=== PATIENT | female | born 1950 | race Caucasian/White ===

== ENCOUNTER 2016-09-06 08:30 | Inpatient (IN) | payer MEDICARE, OTHER ==
[2016-09-03 12:37] LABS: HEMATOCRIT 43.9 % (36.0-48.0); HEMOGLOBIN 15.6 g/dL (12.0-16.0)
[2016-09-03 13:03] LABS: CHLORIDE, SERUM 105 MMOL/L (96-112); CO2 (CARBON DIOXIDE) 30 MMOL/L (24-34); CREATININE 1.16 MG/DL (0.55-1.02); GFR AFRICAN AMERICAN 57 ML/MIN (>=60); GFR NON AFRICAN AMERICAN 49 ML/MIN (>=60); GLUCOSE, SERUM 200 MG/DL (60-99); SODIUM, SERUM 137 MMOL/L (135-148)
[2016-09-03 13:04] LABS: BUN (BLOOD UREA NITROGEN) 23 MG/DL (6-23); CALCIUM, SERUM 10.1 MG/DL (8.5-10.4); POTASSIUM, SERUM 5.1 MMOL/L (3.5-5.3)
--- NOTE | ~2016-09-06 | OP ---
Record Of Operation [facility] [place] [address] [place]. [address] NAME: FUNMI ROBLES : 52 STATUS : ADM IN PAT#: [id number] AGE: 66 ADM/REG DATE : 09/06/16 MR#: [id number] REPORT SERV DATE: 09/06/16 DICTATED BY: RONNIE DAVIS II DATE: 09/06/16 REPORT STATUS : Draft TRANSCRIBED BY: MODL DATE: 09/06/16 DATE OF PROCEDURE: 09/06/2016 PREOPERATIVE DIAGNOSES: 1. Nonunion, L3-L4. 2. Remote history of L3-S1 fusion. 3. Screw migration with loosening L3 bilaterally. 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 5. Lower extremity radiculopathy. POSTOPERATIVE DIAGNOSES: 1. Nonunion, L3-L4. 2. Remote history of L3-S1 fusion. 3. Screw migration with loosening L3 bilaterally. 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 5. Lower extremity radiculopathy. PROCEDURES: 1. Lumbar laminectomy and facetectomy, L2-L3. 2. Interbody arthrodesis, L2-L3. 3. Application of prosthetic device, L2-L3. 4. Posterolateral arthrodesis, L2-3. 5. Posterolateral arthrodesis, L3-4. 6. Posterior instrumentation, L2-3 and L3-4. 7. Use of local autograft, allograft substitute, and bone morphogenic protein. 8. Use of the microscope and stereotactic spinal imaging. SURGEON: Ronnie Davis M.D. FLUID: 1500 mL LR. ESTIMATED BLOOD LOSS: 125 mL. DRAINS: One drain. COMPLICATIONS: None. ANTIBIOTIC: Preoperatively. PREOPERATIVE HISTORY: This is a very friendly female, who did relatively well with her surgery previously. However, she is having worsening back and leg pains now. She appears to have a nonunion at L3-4 with clear violation of the endplates at L2-3 from the screws at L3. We discussed the pros and cons of the surgery. We discussed the risks and benefits of the surgery. We discussed the fact that the surgery would not eradicate her back pain, but hopefully would decrease it substantially and also her leg pain. We discussed the risks and she wished to proceed. Record Of Operation [facility] [place] [address] [place]. [address] NAME: FUNMI ROBLES : 52 STATUS : ADM IN PAT#: [id number] AGE: 66 ADM/REG DATE : 09/06/16 MR#: [id number] REPORT SERV DATE: 09/06/16 DICTATED BY: RONNIE DAVIS II DATE: 09/06/16 REPORT STATUS : Draft TRANSCRIBED BY: SUSANNE DATE: 09/06/16 DESCRIPTION OF PROCEDURE: After informed consent was obtained, the patient was brought to the operating room at her request and general anesthesia was achieved. She was placed in a prone position. The back was prepped and draped in a sterile fashion. The stereotactic spinal pin was placed into the iliac crest on the left followed by completion of the intraoperative CT scan. The stereotactic guidance was then used throughout the case. Incision was now made on the right at L2-3 and L3-4. The subperiosteal exposure was completed, and the transverse processes were dissected upon at L2, L3, and L4. The previous hardware was also noted at L3 and L4. The Zamora retractors were placed. At this point, the top nuts were removed at L3 and L4. This allowed the jyothi to be bent out of the way and the loose L5-3 screw removed. At this point, we then placed the new pedicle screw into L2 on the right. With the microscope in place, we then performed a complete facetectomy at L2-L3. The pars was now removed, and the [id number] decompression was achieved. The hypertrophic ligamentum flavum was removed, and the dura was well decompressed. The central canal and lateral recess was now well decompressed. Next, the interbody arthrodesis was now initiated with diskectomy. The disk was removed and endplates prepared with the patt, curettes, and the pituitary rongeurs. The area was now irrigated. Next, the local autograft, allograft substitute, and bone morphogenic protein were then placed into the anterior column. The prosthetic device was then chosen and placed at L2-3. The prosthetic device was placed into the anterior column. At this point, the jyothi-to-jyothi connector was then used ([employer]). This allowed the connector to be applied to the previous construct at the L3-4 level. This was then connected to the new screw into L2. Final tightening was performed. Following irrigation, the transverse processes were decorticated at L2, L3, and L4. Again please note, we did evaluate the L3-4 level, and there was still abnormal gross motion at L3 4. The local autograft, allograft substitute, and bone morphogenic protein were then placed along the decorticated surfaces at L2, L3, and L4. A deep drain was placed followed by standard closure on the right side. On the left, we then performed a small incision and worked our way down to the cranial aspect of the old hardware. Once again, the jyothi was bent out of the way and the L3 screw was removed. The new screw was placed into L2, and once again, the jyothi-to-jyothi connector was applied and final tightened. A repeat CT scan confirmed acceptable placement of the implants. Standard closure was performed, and the patient was then pending extubation and transfer. Record Of Operation [facility] [place] [address] [place]. [address] NAME: FUNMI ROBLES : 52 STATUS : ADM IN [facility]#: [id number] AGE: 66 ADM/REG DATE : 09/06/16 MR#: [id number] REPORT SERV DATE: 09/06/16 DICTATED BY: RONNIE DAVIS II DATE: 09/06/16 REPORT STATUS : Draft TRANSCRIBED BY: SUSANNE DATE: 09/06/16 KATHARINE/SUSANNE Ronnie Davis II, M.D. / [id number] CC: Martha Bui II, M.D.
--- NOTE | ~2016-09-06 | DS ---
Discharge Summary [facility] [address] [place]. [address] NAME: FUNMI ROBLES : 52 STATUS : DIS IN PAT#: [id number] AGE: 66 ADM/REG DATE : 09/06/16 MR#: [id number] REPORT SERV DATE: 09/15/16 DICTATED BY: RONNIE DAVIS II DATE: 09/14/16 REPORT STATUS : Draft TRANSCRIBED BY: MODDavid DATE: 09/14/16 Data Collection from hospitalization DISCHARGE DIAGNOSIS(ES): 1. Nonunion L3-L4. 2. Remote history of L3-S1 fusion. 3. Screw migration with loosening L3 bilaterally. 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 5. Lower extremity radiculopathy. 6. Anxiety. 7. Asthma. 8. Diabetes mellitus. 9. Gastroesophageal reflux disease. 10.Hypertension. CONSULTATIONS: None. PROCEDURES PERFORMED: Lumbar laminectomy and facetectomy L2-L3; interbody arthrodesis L2-L3; application of prosthetic device, L2-L3; posterolateral arthrodesis, L2-3; posterolateral arthrodesis, L3-4; posterior instrumentation L2-3, L3-4; use of local autograft, allograft substitute and bone morphogenetic protein; use of the microscope and stereotactic spinal imaging, 09/06/2016. PATHOLOGY: Bone soft tissue and hardware from lumbar spine, orthopedic hardware, gross diagnosis; fragments of cartilage bone and skeletal muscle; hematopoietic marrow focally present and unremarkable, no evidence of infection or tumor. MEDICATIONS: Caltrate 600 mg every morning, Lexapro 10 mg every evening, Neurontin 600 mg three times a day, Amaryl 4 mg twice daily, Glucophage 1000 mg twice a day, Lantus SoloSTAR 34 units subcutaneously at bedtime, Lamictal 200 mg every morning, MS Contin 15 mg twice daily, Benicar one every morning, Zocor 20 mg at bedtime, MiraLAX powder one packet daily, Tylenol 650 mg every four hours as needed, Mylanta 30 mL as needed, Dulcolax 15 mg as needed, Valium 5 mg every four hours as needed, milk of magnesia 30 mL twice daily as needed, Fleet enema 133 mL rectally as needed, Roxicodone 5-10 mg every four hours as needed, Fosamax 70 mg every seven days, and probiotic one daily. CONDITION AT DISCHARGE: Upon discharge, she did appear to be doing well and had no complaints. DISPOSITION: She had been discharged with transfer to [facility] to continue a diabetic diet with activity as discussed. She was to follow up with me in the office in two weeks. HOSPITAL COURSE: This 66-year-old female had complaints of lumbar and thoracic spine related symptoms. They were located at the mid low back with radiation into the lower extremities with associated numbness and tingling. She reported they were last seen in the office two weeks prior to admission and that she was status post MRI of the thoracic spine and CT of the lumbar spine. When asked about the severity level of the symptoms, she reported a pain Discharge Summary [facility] [address] [facility] [place]. [address] NAME: FUNMI ROBLES : 52 STATUS : DIS IN [facility]#: [id number] AGE: 66 ADM/REG DATE : 09/06/16 MR#: [id number] REPORT SERV DATE: 09/15/16 DICTATED BY: RONNIE DAVIS II DATE: 09/14/16 REPORT STATUS : Draft TRANSCRIBED BY: SUSANNE DATE: 09/14/16 level of 4 on a 0-10 scale. The patient admitted to the following factors that modified her symptoms; prolonged sitting, lying down, standing and/or walking would worsen her pain and symptoms. Changing positions, resting, and medication decreased the severity of her pain and symptoms. She had been taking Percocet and baclofen at the time of admission to ease her pain and symptoms. She was admitted for surgery and further treatment. Upon admission to the hospital, she had been taken to the operating room where she did undergo the above procedure. She tolerated this well and was transferred to the recovery room, doing well postoperatively. She was however noted to have had a rough night secondary to pain. It was relieved some after receiving a dose of Valium. Her lower extremity radiculopathy was noted to be improving. She had been evaluated by Physical Therapy, and INCINERATOR OPERATOR was discontinued. On postop day #2, she was noted to have been drowsy but was oriented. She had no nausea or vomiting and her legs were better but she had complaints of low back pain. Her vital signs were stable, and she was afebrile. She was continued on supportive care. On postop day #3, she did appear to be much more alert and was ambulating well with physical therapy. She did remain in stable condition and had continued to do well. On postop day #4, she did remain in stable condition and was continued on her current medications. Due to her stable condition, she was then discharged on postop day #5 with the above instructions. Information collected by: Charito Bahena. I submit the above information as my discharge summary. DUOGLAS/SUSANNE Ronnie Davis II, M.D. / [id number] CC: Martha Bui II, M.D. [facility]
[~2016-09-06 08:30] MED LIST: AMARYL4 PO; BENICAR HCT1 TA2 PO; CALTRA600D PO; FOSAMAX70 MG PO; GLUCOPHAGE1000 MG PO; KLOR-CON M1010 MEQ PO; LAMICTAL200 MG PO; LANTUSCART SC; LEVAQUIN PO; LEVEMFLXPN SC; LEXAPRO10 PO; LORTAB10 PO; MOBIC7.5 PO; NEUR300 PO; OXYCOD PO; PCET PO; VITAMIN D1000 UNI1 PO; ZOCOR20 PO; [UNRECOGNIZED DRUG - OTHER] PO
[2016-12-12] MEDS ORDERED: ALLEGRA180 PO (10:51)
[2016-12-12] MEDS ORDERED: NORCO1 TA1 PO (10:55)
== END 2016-09-11 16:10 | DRG 460 ==
LOC: SDC/OF 08:30 → PACU 13:50 → 3SO 17:38
PROVIDERS: Internal Medicine; Orthopaedic Surgery
PROC: 0SG00AJ Fusion of Lumbar Vertebral Joint with Interbody Fusion Device, Posterior Approach, Anterior Column, Open Approach (ICD-10-PCS; principal; 2016-09-06 10:45)
PROC: 0SG1071 Fusion of 2 or more Lumbar Vertebral Joints with Autologous Tissue Substitute, Posterior Approach, Posterior Column, Open Approach (ICD-10-PCS; 2016-09-06 10:45)
PROC: 4A11X4G Monitoring of Peripheral Nervous Electrical Activity, Intraoperative, External Approach (ICD-10-PCS; 2016-09-06 10:45)
DX: M96.0 Pseudarthrosis after fusion or arthrodesis (principal); M51.16 Intervertebral disc disorders with radiculopathy, lumbar region
CPT/HCPCS: 80048; 82962; 85014; 85018; 87641; 88300; 88304; 88311; 93005; 97116-GP; 97162-GP; 97530-GP; A9270-GY; C1713; C1768; G8978-CL-GP; G8979-CJ-GP; J0360; J0690; J1170; J2250; J2405; J2550; J2710; J3010; J3370